=== PATIENT | male | born 1985 | race African-American/Black ===

== ENCOUNTER 2022-09-09 11:41 | Emergency (ER) | payer OTHER, SELFPAY ==
[2022-09-09 11:52] VITALS: BP 152/86; PULSE 82; RESP 16; TEMP 36.8; O2SAT 100
--- NOTE | 2022-09-09 12:02 | ED.UPPEXIN ---
HPI - Extremity Injury (Upper) General Chief Complaint: Upper Respiratory Infection Stated Complaint: SOB/Right Shoulder Pain Time Seen by Provider: 09/09/22 12:02 Source: patient Mode of arrival: ambulatory Limitations: no limitations History of Present Illness HPI narrative: 36-year-old male presents with complaint of right-sided shoulder Pain after playing basketball yesterday. denies injury. States that he had not played no while and hit it hard . Reports that he also needs refill of his inhaler and blood pressure medication. [place] short of breath yesterday while playing basketball but did not have a container to use. Shortness of breath has resolved. States that his primary care physician moved away. All systems reviewed and negative except as noted above. Related Data Home Medications Medication Instructions Recorded Confirmed albuterol sulfate 2 puff inhalation DIRECTED PRN 09/09/22 09/09/22 Shortness Of Breath Or Wheezing lisinopril 20 1 tablet PO DAILY 09/09/22 09/09/22 mg-hydrochlorothiazide 25 mg tablet Allergies Allergy/AdvReac Type Severity Reaction Status Date / Time No Known Allergies Allergy Verified 09/09/22 12:02 Review of Systems Review of Systems: CONSTITUTIONAL: Denies fever, chills, or sweats. EYES: Denies visual changes, redness, or discharge. ENT: Denies rhinorrhea, congestion, sore throat, or otalgia. CARDIOVASCULAR: Denies chest pain, palpitations, or edema. RESPIRATORY: Denies cough or dyspnea. GASTROINTESTINAL: Denies abdominal pain, nausea, vomiting, or diarrhea. GENITOURINARY: Denies dysuria or hematuria. SKIN: Denies rash or itching. MUSCULOSKELETAL: Denies back pain, joint pain, or myalgia. reports right shoulder pain. NEUROLOGIC: Denies headache, numbness, or weakness. PSYCHIATRIC: Denies anxiety or depression. All other systems reviewed are negative, except as documented in HPI. PMFSH Comments At time of signature, agree with nursing past medical, surgical, social and family history. There is no relevant family history pertinent to the presenting complaint. Exam Narrative: GENERAL: This is a well-nourished, well-developed patient, in no apparent distress. HEAD: normocephalic, atraumatic. EYES: PERRL. Sclera clear/white. Vision is grossly intact. EARS: External ears normal NOSE: External nose normal NECK: Neck supple, non-tender without lymphadenopathy, masses or thyromegaly. CARDIOVASCULAR: Regular rate and rhythm without murmurs, gallops, or rubs. RESPIRATORY: Clear to auscultation. Breath sounds equal bilaterally. No wheezes, rales, or rhonchi. SKIN: warm, Dry, intact with no suspicious lesions or rash, good texture and turgor. NEURO: awake, alert, and oriented to person, place and time. There were no obvious focal neurologic abnormalities. EXTREMITIES: No effusion, or edema noted. Generalized tenderness on palpation to right shoulder. Full range of motion without pain. Normal strength To right upper extremity. Negative right arm drop. Course Course Level of Care: Express Care Visit Vital Signs Vital signs: Vital Signs Temperature 36.8 C 09/09/22 11:52 Pulse Rate 82 09/09/22 11:52 Respiratory Rate 16 09/09/22 11:52 Blood Pressure 152/86 H 09/09/22 11:52 Pulse Oximetry 100 09/09/22 11:52 Oxygen Delivery Room Air 09/09/22 11:52 Temperature 36.8 C 09/09/22 11:52 Pulse Rate 82 09/09/22 11:52 Respiratory Rate 16 09/09/22 11:52 Blood Pressure 152/86 H 09/09/22 11:52 Pulse Oximetry 100 09/09/22 11:52 Oxygen Delivery Room Air 09/09/22 11:52 Reviewed MDM - Extremity Injury (Upper) MDM Narrative Medical decision making narrative: Patient is aware of diagnosis, understands and agrees to treatment plan. Anticipatory guidance given. Patient agrees to follow-up as directed and is aware of reasons to seek care at the emergency department. Portions of this record may have been created with saad
== END 2022-09-09 12:16 | disposition home or self-care (01) ==
PROVIDERS: Emergency Provider Nurse Practitioner Family
DX: S46.911A Strain of unspecified muscle, fascia and tendon at shoulder and upper arm level, right arm, initial encounter (principal); X50.3XXA Overexertion from repetitive movements, initial encounter; Y93.67 Activity, basketball; I10 Essential (primary) hypertension; J45.909 Unspecified asthma, uncomplicated
CPT/HCPCS: 99202; G0463

== ENCOUNTER 2023-02-04 12:30 | Emergency (ER) | payer OTHER, SELFPAY ==
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
[2023-02-04 12:44] VITALS: BP 161/100; PULSE 81; RESP 18; TEMP 36.8; O2SAT 99
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
== END 2023-02-04 13:37 | disposition home or self-care (01) ==
PROVIDERS: Emergency Provider Nurse Practitioner Family
DX: S20.211A Contusion of right front wall of thorax, initial encounter (principal); V89.2XXA Person injured in unspecified motor-vehicle accident, traffic, initial encounter
CPT/HCPCS: 71100; 99203; G0463

== ENCOUNTER 2023-02-13 17:51 | Emergency (ER) | payer OTHER, SELFPAY ==
[2023-02-13 17:52] VITALS: BP 163/104; PULSE 105; RESP 16; TEMP 37.1; O2SAT 99
--- NOTE | 2023-02-13 18:35 | ED.EXTPRO ---
HPI - Extremity Problem General Chief complaint: Extremity Injury, Upper Stated complaint: Left Wrist Pain Time Seen by Provider: 02/13/23 17:55 Source: patient Mode of arrival: ambulatory Limitations: no limitations History of Present Illness HPI Narrative: Immanuel is a 37-year-old male patient presenting to the clinic today with complaints of left-sided wrist pain. He reports that over the last few days he has developed left-sided wrist pain. 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 Does report some sharp pain in the radial aspect of the right wrist. Pain comes and goes but is more so when he is actively using his wrist. No known injury Related Data Allergies Allergy/AdvReac Type Severity Reaction Status Date / Time No Known Allergies Allergy Verified 09/09/22 12:02 Review of Systems Review of Systems: Pertinent positives per HPI. Patient denies any fever, chills, rash, headache, visual changes, dizziness, cough, runny nose, sore throat, shortness of breath, chest pain, palpitations, nausea, vomiting, diarrhea, constipation, abdominal pain, or any urinary issues. PMFSH Comments At the time of my signature, I reviewed and agree with the nursing past medical, surgical, social, and family history. There is no relevant family history pertinent to the patient complaint. Exam Narrative: General: Well-developed, well nourished, in no apparent distress Head: Normocephalic, atraumatic. Cardio: Regular rate and rhythm, s1 and s2 normal, no murmur appreciated. Resp: Clear to auscultation bilaterally, no rhonchi, rales, wheezing or rubs. Musculoskeletal: No deformity, tender to palpation over the right radial wrist, mild pain with Ethel's, mild increase in pain with Tinel's sign, grossly normal range of motion, muscle strength strong and equal, peripheral pulse strong, no edema, no cyanosis, normal gait and station Course Course Emergency Course: Portions of this record may have been created with voice recognition software. Level of Care: Express Care Visit Vital Signs Vital signs: Vital Signs Temperature 37.1 C 02/13/23 17:52 Pulse Rate 105 H 02/13/23 17:52 Respiratory Rate 16 02/13/23 17:52 Blood Pressure 163/104 H 02/13/23 17:52 Pulse Oximetry 99 1007/23 17:52 Oxygen Delivery Room Air 02/13/23 17:52 Temperature 37.1 C 02/13/23 17:52 Pulse Rate 105 H 02/13/23 17:52 Respiratory Rate 16 02/13/23 17:52 Blood Pressure 163/104 H 02/13/23 17:52 Pulse Oximetry 99 02/13/23 17:52 Oxygen Delivery Room Air 02/13/23 17:52 Vital signs reviewed MDM - Extremity (Nontraumatic) MDM Narrative Medical decision making narrative: At the time of visit patient is resting comfortably on the exam table. I suspect patient has left wrist tendinitis. Supportive measures were discussed with the patient and he voiced understanding discharge instructions. Recommend picking up a cock up splint and taking ibuprofen as discussed. Differential Diagnosis Differential diagnosis: Likely other (Wrist tendinitis, wrist carpal tunnel, wrist fracture, wrist sprain) Discharge Plan Discharge Clinical Impression: Left wrist tendinitis Patient Disposition: Home, Self-Care Condition: Stable Instructions: Antibiotic Form, Tendinitis (ED) Additional Instructions: Discussed patient's elevated blood pressure at the time of visit and recommend follow-up with primary care physician to have this reevaluated within the next week if symptoms persist. Rest, ice, elevate, and wear cock-up splint as discussed Take 600-800 mg of Motrin 3 times a day x1 week Follow up with your PCP if symptoms persist more than 1 week. Prescriptions: No Action lisinopril-hydrochlorothiazide 20-25 mg tablet 1 tablet PO DAILY Qty: 30 0RF Follow-up/Referrals: PHYSICIAN NOT ON STAFF,NONSTAFF [Primary Care
== END 2023-02-13 18:40 | disposition home or self-care (01) ==
PROVIDERS: Emergency Provider Nurse Practitioner Family
DX: M77.8 Other enthesopathies, not elsewhere classified (principal); I10 Essential (primary) hypertension; J45.909 Unspecified asthma, uncomplicated
CPT/HCPCS: 99212; G0463

== ENCOUNTER 2023-03-13 15:51 | Emergency (ER) | payer OTHER, SELFPAY ==
[2023-03-13 16:05] VITALS: BP 143/100; PULSE 97; RESP 18; TEMP 36.8; O2SAT 99
--- NOTE | 2023-03-13 16:43 | ED.BACK ---
HPI - Back Pain/Injury General Chief Complaint: Back Pain/Injury Stated Complaint: lower back pain Time Seen by Provider: 03/13/23 16:05 Source: patient Mode of arrival: ambulatory Limitations: no limitations History of Present Illness HPI Narrative: Immanuel is a 37-year-old male patient presenting to the clinic today with complaints of low back pain x1 days. He reports he got into bed yesterday and developed some mid low back pain. He denies any known injury or falls. Denies any saddle anesthesia or numbness or tingling going down either extremity. No loss of bowel or bladder. Related Data Allergies Allergy/AdvReac Type Severity Reaction Status Date / Time No Known Allergies Allergy Verified 03/13/23 15:57 Review of Systems Review of Systems: Pertinent positives per HPI. Patient denies any fever, chills, rash, headache, visual changes, dizziness, cough, runny nose, sore throat, shortness of breath, chest pain, palpitations, nausea, vomiting, diarrhea, constipation, abdominal pain, or any urinary issues. PMFSH Comments At the time of my signature, I reviewed and agree with the nursing past medical, surgical, social, and family history. There is no relevant family history pertinent to the patient complaint. Exam Narrative: General: Well-developed, well nourished, in no apparent distress Head: Normocephalic, atraumatic. Cardio: Regular rate and rhythm, s1 and s2 normal, no murmur appreciated. Resp: Clear to auscultation bilaterally, no rhonchi, rales, wheezing or rubs. Musculoskeletal: No deformity, tender to palpation over L3-L4, grossly normal range of motion, patellar reflexes 2+, bilateral lower muscle strength strong and equal, negative bilateral straight leg test, peripheral pulse strong, no edema, no cyanosis, normal gait and station Course Course Emergency Course: Portions of this record may have been created with voice recognition software. Level of Care: Express Care Visit Vital Signs Vital signs: Vital Signs Temperature 36.8 C 03/13/23 16:05 Pulse Rate 97 03/13/23 16:05 Respiratory Rate 18 03/13/23 16:05 Blood Pressure 143/100 H 03/13/23 16:05 Pulse Oximetry 99 03/13/23 16:05 Temperature 36.8 C 03/13/23 16:05 Pulse Rate 97 03/13/23 16:05 Respiratory Rate 18 03/13/23 16:05 Blood Pressure 143/100 H 03/13/23 16:05 Pulse Oximetry 99 03/13/23 16:05 Vital signs reviewed MDM - Back Pain/Injury MDM Narrative Medical decision making narrative: At the time of visit patient is resting comfortably on exam table. I suspect patient has a lumbar strain. Prescription for naproxen and Flexeril was sent to the pharmacy and supportive measures were discussed with the patient he voiced understanding discharge instructions and agrees to treatment plan. Differential Diagnosis Differential diagnosis: Likely lumbar radiculopathy, sciatica, strain of lumbar region, renal colic, pyelonephritis, thoracic back pain and discitis Discharge Plan Discharge Clinical Impression: Strain of lumbar region Patient Disposition: Home, Self-Care Condition: Stable Instructions: Antibiotic Form, Acute Low Back Pain (ED) Additional Instructions: Take any prescription medication only as prescribed. Be mindful of sedation precautions given to you if taking a muscle relaxer. May use heat or ice to the affected area Consider massage or chiropractor adjustment if this was discussed with provider May use blue emu, lidocaine patches, or asper cream to affected area- do not apply heat or ice directly over cream- can cause burn. Complete appropriate back stretching exercises. Follow up with your PCP in 3-5 days if symptom persist. Prescriptions: New naproxen 500 mg tablet 500 mg PO BID PRN (Reason: pain) 7 Days Qty: 14 0RF cyclobenzaprine 10 mg tablet 10 mg PO Q8H PRN (Reason: muscle spasm) 7 Days Qty: 21 0RF No Action lisinopril-hydrochlorothiazide 20-25
== END 2023-03-13 16:49 | disposition home or self-care (01) ==
PROVIDERS: Emergency Provider Nurse Practitioner Family
DX: S39.012A Strain of muscle, fascia and tendon of lower back, initial encounter (principal); X58.XXXA Exposure to other specified factors, initial encounter
CPT/HCPCS: 99213; G0463

== ENCOUNTER 2023-04-22 14:00 | Emergency (ER) | payer OTHER, SELFPAY ==
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
[2023-04-22 14:25] VITALS: BP 165/101; PULSE 93; RESP 20; TEMP 37.3; O2SAT 96
[2023-04-22 14:26] VITALS: BP 166/91
== END 2023-04-22 15:00 | disposition home or self-care (01) ==
PROVIDERS: Emergency Provider Nurse Practitioner Family
DX: G44.89 Other headache syndrome (principal); I10 Essential (primary) hypertension
CPT/HCPCS: 99213; G0463

== ENCOUNTER 2023-05-06 12:40 | Emergency (ER) | payer OTHER, SELFPAY ==
[2023-05-06 12:49] VITALS: BP 159/94; PULSE 84; RESP 16; TEMP 36.8; O2SAT 97
--- NOTE | 2023-05-06 12:51 | ED.GENADULT ---
HPI - General Adult General Chief complaint: Unspecified Stated complaint: Back Pain Time Seen by Provider: 05/06/23 13:10 Source: patient, RN notes reviewed and old records reviewed Mode of arrival: ambulatory Limitations: no limitations History of Present Illness HPI narrative: 37-year-old presents to the [facility] with complaints of right lower back pain For couple of days Patient denies any abdominal pain. No midline tenderness. Denies any loss retention of bowel or bladder. Denies any trauma. Patient reports ?I think I slept wrong. ? Related Data Allergies Allergy/AdvReac Type Severity Reaction Status Date / Time No Known Allergies Allergy Verified 05/06/23 12:55 Review of Systems Review of Systems: All systems reviewed & are unremarkable except as noted in HPI and below Constitutional: Constitutional: Reports no additional constitutional complaints Eyes: Eyes: Reports no additional eye complaints ENT: Reports system reviewed and no additional complaints, except as documented Cardiovascular: Cardiovascular: Reports no additional cardiovascular complaints, Denies chest pain and Denies dyspnea Respiratory: Respiratory: Reports no additional respiratory complaints, Denies chest congestion, Denies cough and Denies dyspnea Gastrointestinal: Gastrointestinal: Reports no additional gastrointestinal complaints, Denies abdominal pain, Denies nausea and Denies vomiting Musculoskeletal: Musculoskeletal: Reports as per HPI and Reports back pain (Right lower) Integumentary/Breasts: Skin/Breast: Reports system reviewed and no additional complaints, except as docu Neurologic: Reports system reviewed and no additional complaints, except as documented Psychiatric: Psychiatric: Reports no additional psychiatric complaints Allergic/Immunologic: Allergic/Immunologic: Reports no additional allergic/immunologic complaints PMFSH Comments At the time of my signature, I reviewed and agree with the nursing past medical, surgical, social, and family history. There is no relevant family history pertinent to the patient complaint. Exam Const: General: cooperative, healthy appearing, comfortable, no acute distress, well developed, alert and well nourished Nutritional Appearance: well nourished Orientation/consciousness: patient oriented x3 Limitations: no limitations HENMT: Head: normal to inspection Ears: hearing grossly normal bilaterally and external ears normal Face/Nose/Sinus: Normal external nose present, Normal nares present, Normal nasal mucous membranes and turbinates present, normal facial exam and face symmetric Face and sinus: normal facial exam and face symmetric Eyes: General: appearance normal, both eyes and all related structures Alignment and Position: alignment normal Periorbital: periorbital findings normal Pupils: Equal, round and reactive pupils present EOM: EOMs intact bilaterally Neck: Neck: normal visual inspection, full ROM, no lymphadenopathy and no meningeal signs Chest: Chest palpation & inspection: normal inspection of the chest Resp: Effort & Inspection: normal respiratory effort and able to speak in complete sentences Auscultation: clear to auscultation bilaterally, no crackles, no rales, no rhonchi and no wheezes Cardio: Rate: regular rate Rhythm: regular rhythm GI: GI Palp: No abdominal tenderness Back/Spine/Pelvis: Back: no CVA tenderness, No ecchymosis and back tenderness (Right lower) Cervical Spine: cervical ROM normal Skin: General skin exam: normal color and no rashes or lesions noted Lesions: no lesions Rashes: no rashes Wounds: no wounds Neuro: General: patient oriented x3, gait normal, tone normal, moves all extremities and no meningeal signs Cranial nerves: Yes Equal, round and reactive pupils present Cognition (Neuro): normal cognition Speech: normal speech Gait exam (Neuro): Normal gait present Extrem: General: normal to inspection, full ROM, capillary refill normal an
== END 2023-05-06 13:22 | disposition home or self-care (01) ==
PROVIDERS: Emergency Provider Nurse Practitioner
DX: M54.50 Low back pain, unspecified (principal)
CPT/HCPCS: 99213; G0463

== ENCOUNTER 2023-06-24 12:49 | Emergency (ER) | payer OTHER, SELFPAY ==
[2023-06-24 12:58] VITALS: BP 156/93; PULSE 81; RESP 16; TEMP 36.6; O2SAT 97
--- NOTE | 2023-06-24 13:37 | ED.URI ---
HPI - URI/Sore Throat General Chief Complaint: Upper Respiratory Infection Stated Complaint: cough,runny nose Time Seen by Provider: 06/24/23 13:30 Source: patient and RN notes reviewed Mode of arrival: ambulatory Limitations: no limitations History of Present Illness HPI Narrative: Patient presents today complaining of a 3 day history of cough that is worse at night, occasional wheezing, and severe rhinorrhea. Denies any additional symptoms to include fever, body aches, shortness of breath, nausea, vomiting, diarrhea. History of asthma. He has been using his albuterol inhaler and cold and flu medicine without much relief. Denies known sick contacts, but prior to onset of symptoms he did have a [employer] green party. Related Data Home Medications Medication Instructions Recorded Confirmed lisinopril 20 1 tablet PO DAILY 06/24/23 06/24/23 mg-hydrochlorothiazide 25 mg tablet Allergies Allergy/AdvReac Type Severity Reaction Status Date / Time No Known Allergies Allergy Verified 06/24/23 13:00 Review of Systems Review of Systems: CONSTITUTIONAL: Denies body aches, fever, chills, or sweats. EYES: Denies visual changes, redness, or discharge. ENT: Denies congestion, sore throat, or otalgia.+ rhinorrhea CARDIOVASCULAR: Denies chest pain, palpitations, or edema. RESPIRATORY: + cough, wheezing GASTROINTESTINAL: Denies abdominal pain, nausea, vomiting, or diarrhea. GENITOURINARY: Denies dysuria or hematuria. SKIN: Denies rash, itching, or wounds. MUSCULOSKELETAL: Denies back pain, joint pain, or myalgia. NEUROLOGIC: Denies headache, numbness, tingling, or weakness. PSYCH: Denies depression or anxiety. [facility] Past Medical History Medical History (Updated 06/24/23 @ 13:47 by Petra Lenz, [facility], ) Asthma Comments At time of signature, I have reviewed and agree with nursing past medical, surgical, social and family history unless otherwise noted. Please see nursing chart for further information. There is no relevant family history pertinent to the presenting complaint Exam Narrative: GENERAL: Mildly ill-appearing, well-nourished, and in no acute distress. HEAD: Normocephalic, atraumatic. EYES: EOMI. No redness or drainage. Conjunctivae normal. ENT: Mucous membranes pink and moist. Nares clear. No rhinorrhea. TMs normal bilaterally. Throat normal. Uvula midline. NECK: Normal AROM. Supple. No lymphadenopathy. CHEST: No respiratory distress. Clear to auscultation. HEART: Regular rate and rhythm. No murmur appreciated. EXTREMITIES: Normal range of motion. No edema. SKIN: Warm, dry, no rash. Capillary refill normal. Normal skin turgor. NEURO: No focal deficits. Alert and oriented x3. Gait steady. PSYCH: Normal affect. No signs of depression or anxiety. Course Course Level of Care: Express Care Visit Vital Signs Vital signs: Vital Signs Temperature 97.8 F 06/24/23 12:58 Pulse Rate 81 06/24/23 12:58 Respiratory Rate 16 06/24/23 12:58 Blood Pressure 156/93 H 06/24/23 12:58 Pulse Oximetry 97 06/24/23 12:58 Oxygen Delivery Room Air 06/24/23 12:58 Temperature 97.8 F 06/24/23 12:58 Pulse Rate 81 06/24/23 12:58 Respiratory Rate 16 06/24/23 12:58 Blood Pressure 156/93 H 06/24/23 12:58 Pulse Oximetry 97 06/24/23 12:58 Oxygen Delivery Room Air 06/24/23 12:58 Reviewed MDM - URI/Sore Throat MDM Narrative Medical decision making narrative: Patient's symptoms are likely viral in etiology with exacerbation of his asthma. Prescriptions for prednisone and Tessalon Perle sent to pharmacy. Discussed [id number] medication use and duration of illness. Anticipatory guidance given. Differential Diagnosis Differential diagnosis: Likely upper respiratory infection, sinusitis, viral infection, bronchitis and other (Asthma exacerbation) Critical Care Time Critical Care Time Critical Care Time: No Discharge Plan Discharge Clinical Impression: Upper re
== END 2023-06-24 13:51 | disposition home or self-care (01) ==
PROVIDERS: Emergency Provider Nurse Practitioner
DX: J06.9 Acute upper respiratory infection, unspecified (principal); J45.901 Unspecified asthma with (acute) exacerbation
CPT/HCPCS: 99213; G0463

== ENCOUNTER 2023-08-23 09:58 | Emergency (ER) | payer OTHER, SELFPAY ==
[2023-08-23 10:04] VITALS: BP 159/102; PULSE 95; RESP 16; TEMP 36.8; O2SAT 96
--- NOTE | 2023-08-23 10:05 | ED.EYEPROB ---
HPI - Eye Problem General Chief complaint: Eye Problems Stated complaint: right eye discharge,red Time Seen by Provider: 08/23/23 10:06 Source: patient Mode of arrival: ambulatory Limitations: no limitations History of Present Illness HPI Narrative: Miguel Ángel is a 37-year-old male patient presenting to the clinic today with complaints of right eye red and discharge coming from the right eye, runny nose, cough, congestion, and sore throat that all started yesterday. He reports no known fever or chills. History of hypertension and has not taken his blood pressure medications. Reports he was on lisinopril 20 mg/hydrochlorothiazide 25 mg but has not had the blood pressure medicines for a couple months. Does not currently have a primary care provider. Related Data Allergies Allergy/AdvReac Type Severity Reaction Status Date / Time No Known Allergies Allergy Verified 08/23/23 10:02 Review of Systems Review of Systems: Pertinent positives per HPI. Patient denies any fever, chills, rash, headache, visual changes, dizziness, cough, runny nose, sore throat, shortness of breath, chest pain, palpitations, nausea, vomiting, diarrhea, constipation, abdominal pain, or any urinary issues. [facility] Past Medical History Medical History Asthma Comments At the time of my signature, I reviewed and agree with the nursing past medical, surgical, social, and family history. There is no relevant family history pertinent to the patient complaint. Exam Narrative: General: Well-developed, well nourished, in no apparent distress Head: Normocephalic, atraumatic Eyes: Pupils equally round and reactive to light bilaterally, EOM intact, sclera and conjunctive clear, no discharge, lids normal Ears: TMs intact and clear, ear canals clear, no drainage, grossly hearing normal. Nose: Nares patent, no discharge, no inflammation, no sinus tenderness. Mouth: Oropharynx without lesions or masses, good dentition, MMM. Neck: Supple, trachea midline, no enlargement of anterior or posterior cervical nodes, no thyroid masses or goiter palpable. Cardio: Regular rate and rhythm, s1 and s2 normal, no murmur appreciated. Resp: Clear to auscultation bilaterally anteriorly and posteriorly, no rhonchi, rales, wheezing or rubs Course Course Emergency Course: Portions of this record may have been created with voice recognition software. Level of Care: Express Care Visit Vital Signs Vital signs: Vital Signs Temperature 36.8 C 08/23/23 10:04 Pulse Rate 95 08/23/23 10:04 Respiratory Rate 16 08/23/23 10:04 Blood Pressure 159/102 H 08/23/23 10:04 Pulse Oximetry 96 08/23/23 10:04 Oxygen Delivery Room Air 08/23/23 10:04 Temperature 36.8 C 08/23/23 10:04 Pulse Rate 95 08/23/23 10:04 Respiratory Rate 16 08/23/23 10:04 Blood Pressure 159/102 H 08/23/23 10:04 Pulse Oximetry 96 08/23/23 10:04 Oxygen Delivery Room Air 08/23/23 10:04 Vital signs reviewed MDM - Eye Problem MDM Narrative Medical decision making narrative: At the time of visit patient is resting comfortably on the exam table. Patient appears to be nontoxic. Plan: Supportive measures were discussed with the patient and they voiced understanding discharge instructions and agrees to treatment plan. Return precautions reviewed Differential Diagnosis Differential diagnosis: Likely corneal abrasion, conjunctivitis, acute iritis, hyphema, periorbital cellulitis, subconjunctival hemorrhage, glaucoma, corneal ulcer and ruptured globe Discharge Plan Discharge Clinical Impression: URI (upper respiratory infection), Pharyngitis, Acute viral conjunctivitis of left eye, Otalgia of right ear, Hypertension Patient Disposition: Home, Self-Care Condition: Stable Instructions: Antibiotic Form, Pharyngitis (ED), Upper Respiratory Infection (ED), Earache (ED), Viral Syndrome (ED), Conjunctivitis (ED), Hy
== END 2023-08-23 10:33 | disposition home or self-care (01) ==
PROVIDERS: Emergency Provider Nurse Practitioner Family
DX: J06.9 Acute upper respiratory infection, unspecified (principal); J02.9 Acute pharyngitis, unspecified; H10.32 Unspecified acute conjunctivitis, left eye; H92.01 Otalgia, right ear; I10 Essential (primary) hypertension; J45.909 Unspecified asthma, uncomplicated
CPT/HCPCS: 87081; 87880; 99213; G0463

== ENCOUNTER 2024-09-26 13:56 | Emergency (ER) | payer OTHER, SELFPAY ==
[2024-09-26 14:07] VITALS: BP 152/97; PULSE 100; RESP 18; TEMP 36.5
--- NOTE | 2024-09-26 14:13 | ED_ITS ---
HPI - Headache General Chief Complaint: Headache Stated Complaint: Headache for a few days Time Seen by Provider: 09/26/24 14:10 Source: patient Mode of arrival: ambulatory Limitations: no limitations History of Present Illness HPI Narrative: Miguel Ángel is a 38-year-old female patient presenting to the clinic today with complaints of headache x2 days. States he has taken some ibuprofen with relief however his headache comes back. Blood pressure is elevated in the clinic today. States he started having a headache after a customer stressed him out. Has headache to the front of his head. Denies any visual changes, dizziness, chest pain, or shortness of breath Related Data Allergies Allergy/AdvReac Type Severity Reaction Status Date / Time No Known Allergies Allergy Verified 08/23/23 10:02 Review of Systems Review of Systems: Pertinent positives per HPI. Patient denies any fever, chills, rash, visual changes, dizziness, cough, runny nose, sore throat, shortness of breath, chest pain, palpitations, nausea, vomiting, diarrhea, constipation, abdominal pain, or any urinary issues. [facility] Past Medical History Medical History Asthma Comments At the time of my signature, I reviewed and agree with the nursing past medical, surgical, social, and family history. There is no relevant family history pertinent to the patient complaint. Exam Narrative: General: Well-developed, well nourished, in no apparent distress Head: Normocephalic, atraumatic Eyes: Pupils equally round and reactive to light bilaterally, EOM intact, sclera and conjunctive clear, no discharge, lids normal Ears: TMs intact and clear, ear canals clear, no drainage, grossly hearing normal. Nose: Nares patent, no discharge, no inflammation, no sinus tenderness. Mouth: Oropharynx without lesions or masses, good dentition, MMM. Tongue midline, even rise and fall of uvula Neck: Supple, trachea midline, no enlargement of anterior or posterior cervical nodes, no thyroid masses or goiter palpable. Cardio: Regular rate and rhythm, s1 and s2 normal, no murmur appreciated. Resp: Clear to auscultation bilaterally anteriorly and posteriorly, no rhonchi, rales, wheezing or rubs Musculoskeletal: No deformity, non-tender to palpation, grossly normal range of motion, muscle strength strong and equal, peripheral pulse strong, no edema, no cyanosis, normal gait and station Neuro: Alert and oriented x4 with normal speech, no focal deficits, cranial nerves I through XII intact, muscle strength 5 out of 5, sensation intact bilaterally, negative Romberg test Course Course Emergency Course: Portions of this record may have been created with voice recognition software. Level of Care: Express Care Visit Vital Signs Vital signs: Vital Signs Temperature 36.5 C 09/26/24 14:07 Pulse Rate 100 09/26/24 14:07 Respiratory Rate 18 09/26/24 14:07 Blood Pressure 152/97 H 09/26/24 14:07 Oxygen Delivery Room Air 09/26/24 14:07 Temperature 36.5 C 09/26/24 14:07 Pulse Rate 100 09/26/24 14:07 Respiratory Rate 18 09/26/24 14:07 Blood Pressure 152/97 H 09/26/24 14:07 Oxygen Delivery Room Air 09/26/24 14:07 Vital signs reviewed MDM - Headache MDM Narrative Medical decision making narrative: At the time of visit patient is resting comfortably on the exam table. Patient appears to be nontoxic. Plan: I suspect patient has tension headache. His blood pressure is also elevated in the clinic today. We will give patient work note. Patient has follow-up appointment with his PCP on . Recommend discussing increasing his blood pressure medications if his blood pressure still elevated. Supportive measures were discussed with the patient and they voiced understanding discharge instructions and agrees to treatment plan. Return precautions reviewed Differential Diagnosis Differential diagnosis: Likely migraine, tension headache, subarachnoid hemorrhage, headache, meningitis and sinusitis Discharge Plan Discharge Clinical Impression: Tension headache Hypertension Qualifiers: Hypertension type: unspecified Qualified Code(s): I10 - Essential (primary) hypertension Patient Disposition: Home Condition: Stable Instructions: Antibiotic Form, Acute Headache (ED), Hypertension (ED) Additional Instructions: Continue current medications Increase fluids and stay well hydrated May take Tylenol/Motrin as needed for pain Try relaxation techniques. Follow-up with your primary care doctor on as scheduled You have an elevated blood pressure in the clinic today and I recommend follow- up with primary care physician to have this reevaluated within the next week if symptoms persist. [place] [employer] guidelines state that normal blood pressure is 120/80 or less. Anything over 120/80 is considered elevated and should be monitored. You may need to decrease you salt intake and eat a heart healthy diet to help lower you blood pressure, other treatments would include decreasing stress, weight loss, stop caffeine, and quit smoking. Your primary care provider can determine whether you need to start antihypertensive medications. Untreated high blood pressure can cause dizziness, headaches, visual changes, blindness, kidney failure, stroke, heart attack, and male impotence. Patient Language: Macedonian Prescriptions: No Action lisinopril-hydrochlorothiazide 20-25 mg tablet 1 tablet PO DAILY 30 Days Qty: 30 0RF azelastine 0.05 % drops 1 drp LEFT EYE BID 7 Days Qty: 6 0RF Follow-up/Referrals: UNKNOWN,DOCTOR [Primary Care Provider] - Stand Alone Forms: Work/School Release IP Time of Disposition: 14:15 Quality NIHSS Nursing Documentation ED NIHSS nursing documentation: reviewed/agree
== END 2024-09-26 14:30 | disposition home or self-care (01) ==
PROVIDERS: Emergency Provider Nurse Practitioner Family
DX: G44.209 Tension-type headache, unspecified, not intractable (principal); I10 Essential (primary) hypertension; J45.909 Unspecified asthma, uncomplicated
CPT/HCPCS: 99213; G0463